=== PATIENT | female | born 1955 | race Caucasian/White ===

== ENCOUNTER 2016-05-15 12:25 | Emergency (ER) | payer MEDICARE ==
[2016-05-15 13:14] VITALS: TEMP 98.9; BMI 37.2
[2016-05-15] MEDS ORDERED: LEVALBUTEROL 1.25 MG in 3 ML NEB NEB ONE (16:09)
[2016-05-15] MEDS ORDERED: MORPHINE 4 MG/ML INJECTION IV ONE (16:12)
[2016-05-15] MEDS ORDERED: NS 1,000 ML IV ONE (16:12)
[2016-05-15] MEDS ORDERED: ONDANSETRON HCL 4 MG/2 ML VIAL IV ONE (16:12)
--- NOTE | 2016-05-15 16:13 | EDPRACDOC ---
- General Information Chief Complaint: Flu-Like Symptoms Stated Complaint: ? PNEUMONIA COUGH CONGESTION FEVER Time Seen by Provider: 05/15/16 16:03 Information Source: Patient, Family Mode Of Arrival: Car Home Medications: Home Medications Fluticasone Propionate [Flonase] 1 spray KELSIE DAILY 07/29/14 Metformin HCl 1,000 mg PO BID 07/29/14 Multivit-Min/FA/Lycopene/Lut [Centrum Silver Tablet] 1 tab PO DAILY 07/29/14 Norel Ad 1 tab PO BID 07/29/14 Tramadol HCl [Ultram] 50 mg PO BID PRN 07/29/14 Alprazolam [Xanax] 1 mg PO BID 05/15/16 Aspirin/Acetaminophen/Caffeine [Excedrin Migraine Caplet (250/250/65mg)] 1 tab PO BID PRN 05/15/16 Atorvastatin Calcium [Lipitor] 10 mg PO DAILY 05/15/16 Azithromycin [Zithromax] 250 mg PO DAILY #4 tab 05/15/16 Cetirizine HCl [Zyrtec] 10 mg PO DAILY 05/15/16 Duloxetine HCl [Cymbalta] 60 mg PO DAILY 05/15/16 Gabapentin [Neurontin] 800 mg PO QID 05/15/16 Insulin Aspart [Novolog] 0 units SQ .PUMP 05/15/16 Levalbuterol [Xopenex 1.25 mg] 1.25 mg NEB Q8H #30 nebu 05/15/16 Meclizine HCl [Antivert] 12.5 mg PO BID 05/15/16 Allergies/Adverse Reactions: Allergies Allergy/AdvReac Type Severity Reaction Status Date / Time ampicillin [Ampicillin] Allergy Rash-Genera Verified 05/15/16 13:14 lized Corticosteroids Allergy Unknown/See Verified 05/15/16 13:14 (Glucocorticoids) Comments Sulfa (Sulfonamide Allergy Rash-Genera Verified 05/15/16 13:14 Antibiotics) lized [Sulfa(Sulfonamide Antibiotics)] - History of Present Illness Onset: few days HPI: PT HAS BEEN SOB WITH A COUGH FOR THE PAST FEW DAYS. THE PT SAID THAT HER BS HAS BEEN HIGH DESPITE HER INSULIN PUMP. PT TRIED OTC DIABETIC TUSSIN WITHOUT HELP. Shortness of Breath: Moderate Relevant History: Reports: None Cough: Reports: Non-productive Rhinorrhea: Reports: Clear Ear Symptoms: Reports: None SOB Worsens with: Reports: Exertion SOB Improves with: Reports: Nothing Associated Signs and symptoms: Reports: Cough ED Past Medical History - Patient Medical History Cardiac History: Reports: Hypercholesterolemia GI/ History: Reports: Gastroesophageal Reflux Psychological History: Denies: Depression Systemic History: Reports: Diabetes Additional Past Medical History: CHRONIC PAIN Surgical History: Reports: Hysterectomy - Social Medical History Smoking Status: Former smoker ETOH: None Substance Abuse: None Lives With: Spouse Lives In: Home EDM Review of Systems - Review of Systems ROS Negative Except as Marked: Yes All systems reviewed and were negative except as marked Constitutional: Chills, Fever Respiratory: Cough, Shortness of Breath - Physical Exam Constitutional: Alert (Awake), No apparent distress Oriented to: Time, Person, Place Last recorded Vital Signs: Last Vital Signs Temp 98.9 F 05/15/16 13:08 Pulse 108 05/15/16 13:08 Resp 22 05/15/16 16:05 BP 142/76 05/15/16 13:08 Pulse Ox 98 05/15/16 13:08 Oxygen Pulse Oxygen Saturation 98 O2 Device Room Air Oxygen Flow Rate Fraction of Inspired Oxygen ( FIO2) - HEENT Head: Normal ( normocephalic) Eye Exam: Normal (PERRL, EOMI, Sclera white) Oropharynx: Normal (Pharynx:Moist without exudate,Gums-no swelling) ENT EAC: Normal TMJ: Normal Nose: No Symptoms Reported (septum midline) Neck: Normal (FROM, trachea at midline) - Respiratory/Cardiovascular Respiratory: Rhonchi Cardiovascular: Tachycardia - GI Auscultation: Normal (NABS) Palpation: Normal (Soft,No rebound or guarding, non distended) Tenderness: Non tender Jackson's Sign: Negative - Musculoskeletal Back: Normal (Non-Tender) Extremities: Normal (Normal tone, Pulses 2+ No cyanosis or edema, FROM) - Integumentary Skin: Normal, Warm, Dry Lymphatics: Normal (no adenopathy) - Neurologic Memory Impaired: Normal Motor Function: Normal (Normal tone, Pulses 2+ No cyanosis or edema, FROM) Cranial Nerve: Normal (CN II-X11 intact sensation, strength 5/5) Cerebellar: Normal Mood Description: Normal Thought: Coherent Perception: Normal ED SOB MDM - Re-evaluation Re-evaluation 1 Re-evaluation Time: 17:30 (IMPROVED) - Results Result Diagrams: 05/15/16 16:30 05/15/16 16:30 - EKG EKG #1 EKG Time: 16:15 -: Yes EKG interpreted by me Rate: bpm: 85 [place]: Normal Rhythm: NSR Block: None Hypertrophy: None ST: Normal Comparison: 07/29/14 Decision Time to Discharge: 17:30 - Departure Yes I personally saw and evaluated the patient. Disposition: Home Condition: Fair Final Diagnosis: Acute bronchitis, Transaminitis Instructions: Acute Bronchitis (ED) Education/Counseling Given To: Patient Education/Counseling Given Regarding: Diagnosis, Treatment, Follow Up Prescriptions: Azithromycin [Zithromax] 250 mg PO DAILY #4 tab Levalbuterol [Xopenex 1.25 mg] 1.25 mg NEB Q8H #30 nebu
[2016-05-15 16:24] LABS: ABG Draw Site Left Radial; ALLEN'S TEST PASS; BEb 4.3 (+/- 2); TCO2 28.1 MMOL/L (23-27)
[2016-05-15 16:42] LABS: AUTOMATED BASOPHIL 1.2 % (0-2); AUTOMATED LYMPH 35.7 % (17-44); AUTOMATED NEUTROPHIL 54.1 % (45-76); MPV 6.5 fL (7.4-10.4)
[2016-05-15 16:52] LABS: BLOOD UREA NITROGEN 14 MG/DL (7-17); CALCIUM 9.8 MG/DL (8.4-10.2); CALCULATED OSMOLALITY 273 MOs/Kg (270-290); CHLORIDE 100 mEq/L (98-107); GLUCOSE 169 MG/DL (70-99); SODIUM LEVEL 139 mEq/L (137-146); TOTAL PROTEIN 8.6 G/DL (6.3-8.2)
[2016-05-15 16:54] VITALS: BP 131/59; PULSE 89
[2016-05-15] MEDS ORDERED: HYDROmorphone 1 MG INJECTION IV ONE (17:01)
[2016-05-15 17:03] LABS: PARTIAL THROMB. TIME 27.3 SEC (22-35); PT-INR 1.1
--- NOTE | 2016-05-15 17:07 | DIRPT ---
CLINICAL DATA: Shortness of breath, nonproductive cough, congestion for 1 day, body aches EXAM: PORTABLE CHEST 1 VIEW COMPARISON: None. FINDINGS: The heart size and mediastinal contours are within normal limits. Both lungs are clear. The visualized skeletal structures are unremarkable. IMPRESSION: No active disease. Electronically Signed By: Myranda Crum On: 05/15/2016 17:04
[2016-05-15] MEDS ORDERED: AZITHROMYCIN 250 MG TAB PO ONE (17:32)
== END 2016-05-15 17:52 | disposition home or self-care (01) ==
LOC: ED 12:25
DX: J20.9 Acute bronchitis, unspecified (principal); R74.0 Nonspecific elevation of levels of transaminase and lactic acid dehydrogenase [LDH]
CPT/HCPCS: 36415; 36600; 71010; 80053; 82803; 82962; 83605; 83690; 84484; 85025; 85610; 85730; 87040; 93005; 94640; 96361; 96374; 96375; 99284; A9270; J1170; J2270; J2405; J7614; J3490